=== PATIENT | female | born 1955 | race Caucasian/White ===

== ENCOUNTER 2021-08-30 03:17 | Outpatient (CLI) | payer OTHER, MEDICAID, SELFPAY ==
[2021-08-30 12:37] LABS: Source Nasal/Nares
[2021-08-30 20:16] LABS: COVID-19 PCR Negative (Negative)
== END 2021-08-30 03:18 | disposition home or self-care (01) ==
LOC: LBO 03:18
PROVIDERS: PCP Internal Medicine; Visit Provider Ophthalmology
DX: Z20.822 Contact with and (suspected) exposure to COVID-19 (principal); Z01.818 Encounter for other preprocedural examination
CPT/HCPCS: 87635

== ENCOUNTER 2021-09-02 07:57 | Day surgery (SDC) | payer OTHER, SELFPAY ==
--- NOTE | 2021-09-02 06:32 | ANES.PREOP_ITS ---
General Info Date of Service Date Performed: 09/02/21 Height: 5 ft 2 in Weight: 49.442 kg Body Mass Index (BMI): 19.9 Surgical Procedure: Operation Date: 09/02/21 10:40 Proposed Procedures Side Surgeon p Cataract Extraction with IOL Implant Left Shay Barreto MD Meds Allergies and Home Medications Allergies Allergy/AdvReac Type Severity Reaction Status Date / Time codeine Allergy Unknown Verified 09/02/21 08:35 adhesive tape Allergy Verified 09/02/21 08:35 tramadol AdvReac Severe Seizure Verified 09/02/21 08:35 Home Medication Medication Instructions Recorded acetaminophen 500 mg tablet 1,000 mg PO Q6H PRN tab 07/22/18 albuterol sulfate 2.5 mg/0.5 mL 2.5 mg IH Q4H PRN 07/22/18 solution for nebulization aluminum-mag hydroxide-simethicone 10 ml PO QID PRN 07/22/18 200 mg-200 mg-20 mg/5 mL oral susp ferrous sulfate 325 mg (65 mg 325 mg PO DAILY tab 07/22/18 iron) tablet fluticasone propionate 220 1 puff IH BID 07/22/18 mcg/actuation HFA aerosol inhaler hyoscyamine sulfate 0.125 mg 0.125 mg SL Q4H PRN tab 07/22/18 sublingual tablet lorazepam 1 mg tablet 1 mg PO TID tab 07/22/18 naloxone 4 mg/actuation nasal spray 1 spray PURVI ONCE PRN 07/22/18 nitroglycerin 0.4 mg sublingual 0.4 mg SL ONCE 07/22/18 tablet omeprazole 20 mg capsule,delayed 20 mg PO BID cap 07/22/18 release ondansetron HCl 8 mg tablet 8 mg PO Q8H PRN tab 07/22/18 cyanocobalamin (vitamin B-12) 1,000 mcg PO DAILY 07/27/18 1,000 mcg capsule potassium chloride 10 mEq 30 meq PO BID cap 07/27/18 capsule,extended release eplerenone 25 mg PO DAILY 08/29/21 linaclotide [Linzess] 145 mcg PO DAILY 08/29/21 pramipexole 0.25 mg PO TID 08/29/21 Current Visit Medications: Current Medications Generic Name Dose Route Start Last Admin Trade Name Freq PRN Reason Stop Dose Admin Acetaminophen 1,000 mg 09/02/21 06:00 Acetaminophen 500 Mg Tab PO Q4H PRN PRN Miscellaneous Medication 0 ml 09/02/21 06:00 Prednisolone 1%, Moxifloxacin 0.5%, Nepafenac 0.1% 5ml Btl OS DIRECTED [facility] Miscellaneous Medication 0 ml 09/02/21 06:00 Tropicam./Phenyleph. (1/2.5%) 5 Ml Btl OS DIRECTED [facility] Tetracaine HCl 0 ml 09/02/21 06:00 Tetracaine 0.5% 4 Ml Btl OS DIRECTED [facility] PFSH Active Problems Active Problems: Problem Status Onset Code Nuclear sclerotic cataract of left eye H25.12 Medical History Medical History (Updated 08/30/21 @ 20:50 by Shay Barreto MD) Anemia Asthma Ataxia Chronic epigastric pain Chronic pain Cyst of kidney, acquired Depressive disorder Digestive system disorder Functional dysphagia Generalized abdominal pain Glycosuria Hyperglycemia Hypo-osmolality and hyponatremia Hypocalcemia Hypoglycemia Hypokalemia Hypotension Hypothyroidism Insomnia Iron deficiency Local edema Low back pain Migraine Neuropathy Pain in right knee Rectal prolapse Restless legs Right shoulder pain Seizures last seizure 4-5 years ago Shoulder joint pain Syncope Vaginal prolapse Vitamin D deficiency Weight loss Surgical History Surgical History (Updated 09/02/21 @ 08:33 by Denise Schultz) Hx of abdominal surgery Hx of cholecystectomy Hx of hysterectomy partial Hx of right knee surgery Hx of shoulder surgery left Hx of tonsillectomy Tobacco Smoking/Tobacco Use Status: Never Alcohol Alcohol Intake: never Substance Use Substance use: Never Substance use type: does not use Vital Signs and Lab Results Lab Results Blood Type / Crossmatch: No Data to Display Complete Blood Count: No Data to Display Complete Metabolic Panel: No Data to Display Liver Function Panel: No Data to Display Coagulation Panel: No Data to Display Cardiac Panel: No Data to Display Arterial Blood Gas: No Data to Display Venous Blood Gas: No Data to Display Pancreas Panel: No Data to Display Thyroid Panel: No Data to Display Infectious Disease: Coronavirus (COVID-19)(PCR) Negative (Negative) 08/30/21 11:55 08/30/21 Coronavirus 2019 Source Nasal/Nares 08/30/21 11:55 08/30/21 Blood Cultures: No Data to Display Toxicology Panel: No Data to Display Anesthesia Assessment and Plan Anesthesia History Personal History: No History of Anesthesia Complications Family History: No Family History of Anesthesia Complications Exercise Tolerance Exercise Tolerance: Metabolic Equivalents>4 Cardiac & Pulmonary Exam Cardiac Exam: Normal S1/S2 Heart Sounds Pulmonary Exam: Clear Bilateral Breath Sounds Implantable Cardiac Device Does patient have a Pacemaker or an ICD?: No Airway Exam Known Difficult Airway: No Mallampati Class: 2 Mouth Opening: Normal (> 3cm) Thyromental Distance: Greater than 3 cm Neck Range of Motion: Full ROM Neck Circumference: Normal Teeth Condition: Normal Dentition ASA Classification ASA Score: ASA 2 Emergency Case?: No NPO Status NPO Status: NPO Clears >2 hours, Solids >8 hours Anesthesia Plan Resuscitation Status: Full Code Anesthesia Technique: MAC Anesthesia Airway Planned: Natural Airway Monitors Used: Standard Monitors Preoperative Comments:: 65 yo for cataract removal. sig PMHx: asthma, chronic pain, dysphagia, neuropathy, RLS, seizures, never smoker, occ EtOH. Plan: MKO/MAC
[2021-09-02 08:30] VITALS: BP 126/82; PULSE 57; RESP 16; TEMP 36.8; O2SAT 100
[2021-09-02] MEDS: Tropicam./Phenyleph. (1/2.5%) 5 ML BTL OS ×3 (08:43→08:58)
[2021-09-02 08:45] VITALS: BMI 19.9
[2021-09-02] MEDS: Tetracaine 0.5% 4 ML BTL OS (09:32)
[2021-09-02] MEDS: Lidocaine 2% Jelly 6 ML SYR (09:33)
[2021-09-02] MEDS: Duovisc Viscoelastic System EACH 1 EACH (09:39)
[2021-09-02] MEDS: Balanced Salt Soln.-PLUS 500 ML BAG (09:39)
[2021-09-02] MEDS: Lidocaine 1% Pres-Free 5 ML VIAL (09:40)
[2021-09-02] MEDS: Povidone-Iodine Ophth 30 ML BTL (09:42)
[2021-09-02 09:57] VITALS: BP 119/59; PULSE 54; RESP 16; TEMP 36.2; O2SAT 97
--- NOTE | 2021-09-02 09:59 | W.PM.DSUDISC ---
Discharge Plan Disposition Patient Disposition: HOME Condition: Good Discharge Details Attending Provider: Shay Barreto Primary Care Provider: Raffaele Luna Home Meds and New Rx's Prescriptions: No Action cyanocobalamin (vitamin B-12) 1,000 mcg capsule 1,000 mcg PO DAILY RF: 0 ondansetron HCl 8 mg tablet 8 mg PO Q8H PRNRF: 0 nitroglycerin [Nitrostat] 0.4 mg tablet, sublingual 0.4 mg SL ONCE RF: 0 omeprazole 20 mg capsule,delayed release(DR/EC) 20 mg PO BID RF: 0 fluticasone propionate [Flovent HFA] 220 mcg/actuation HFA aerosol inhaler 1 puff IH BID RF: 0 alum-mag hydroxide-simeth 200-200-20 mg/5 mL suspension 10 ml PO QID PRNRF: 0 lorazepam 1 mg tablet 1 mg PO TID RF: 0 albuterol sulfate 2.5 mg/0.5 mL solution for nebulization 2.5 mg IH Q4H PRNRF: 0 naloxone 4 mg/actuation spray,non-aerosol 1 spray PURVI ONCE PRNRF: 0 acetaminophen [Tylenol Extra Strength] 500 mg tablet 1,000 mg PO Q6H PRNRF: 0 potassium chloride 10 mEq capsule, extended release 30 meq PO BID RF: 0 pramipexole 0.25 mg tablet 0.25 mg PO TID RF: 0 eplerenone 25 mg tablet 25 mg PO DAILY RF: 0 Linzess 145 mcg capsule 145 mcg PO DAILY RF: 0 Discharge Instructions Stand Alone Forms: Post-op Topical Cataract, Naomi Bailey (DSU) Discharge Orders Discharge Orders: Discharge Order (Routine); Ordered 09/02/21 Ordered By: Shay Barreto DS: Diagnosis Discharge Diagnosis (1) Nuclear sclerotic cataract of left eye: Status: Resolved
--- NOTE | 2021-09-02 09:59 | W.PM.OP ---
Date of service: 09/02/21 Time of Service: 09:59 Operative Note Operative Note DATE OF PROCEDURE: 09/02/21 PRE-OP DIAGNOSIS: Nuclear cataract, left eye, symptomatic POST-OP DIAGNOSIS: same PROCEDURE: Cataract extraction using phacoemulsification with intraocular lens implant, left eye SURGEON: Shay Barreto ANESTHESIA TYPE: Local By Surgeon and MAC Refer to Anesthesia Record PATHOLOGY: none sent COMPLICATIONS: None Patient was transported to: same day Patient's condition: stable Implants: [employer] / [employer] Tecnis [id number] Indications: Progressive decreased vision due to cataract, left eye Procedure Description: CATARACT SURGERY OPERATIVE REPORT PREOPERATIVE DIAGNOSIS: 1. Nuclear cataract, left eye POSTOPERATIVE DIAGNOSIS: Same OPERATION: 1. Cataract extraction using phacoemulsification with posterior chamber intraocular lens implant, left eye. IOL: IOL Oncology Social Worker/Model: Yuan & Yuan / TIM Tecnis [id number] IOL Power: + 23.5 diopters IOL Serial Number: [id number] Optic Diameter: 6.0 mm Haptic/Overall Diameter: 13.0 mm PHACO INFO: WiliamInnoCyteon Vision System with OZil and Active Fluidics Cumulative Dispersed Energy (CDE): 4.12 seconds SURGEON: Shay Barreto MD, LISA ANESTHESIA: Monitored A [facility] (MAC), with local sub-tenon's anesthetic infiltration COMPLICATIONS: None SPECIMENS: None INDICATIONS FOR PROCEDURE: The patient is a 65-year-old lady with history of diminished visual acuity in both eyes secondary to the development of bilateral nuclear cataract. She is significantly symptomatic in her left eye that she desires cataract surgery and attempt to improve and maximize her vision. PROCEDURE: The correct surgical eye was identified and marked as the left eye and the pupil was dilated in the preoperative area using mydriatics and cycloplegics. The dilated pupil size was 7.0 mm. Oral sedation was administered in the form of an Imprimis MKO Melt (midazolam 3mg/ketamine 25mg/ondansetron 2mg). The patient was brought to the operating room where cardiopulmonary monitoring was instituted and surgical time-out was performed, confirming the correct operative eye and IOL power. Topical anesthesia was administered and ophthalmic povidone-iodine 5% was instilled into the conjunctival fornices. Lidocaine gel was applied to the cornea and the fredy-ocular area was prepped with Betadine 10% solution and draped in the usual sterile fashion for intraocular surgery, including an aperture drape. A Tegaderm transparent film dressing was cut in half and used to cover the lashes and lid margins. Care was taken to sequester the lashes and lid margins under the Tegaderm dressing. A lid speculum was placed between the lids of the operative eye and the Case-Derik operating microscope was maneuvered into position. Kane scissors were then used to make a conjunctival buttonhole approximately 6mm posterior to the limbus in the inferonasal quadrant. Blunt dissection was carried out to expose bare sclera, and a blunt-tipped sub-tenon?s anesthesia cannula was introduced and passed posteriorly along the globe where non-preserved plain lidocaine was injected into posterior sub-Tenon?s space. A sideport knife was used to make a paracentesis port superiorly/superiortemporally. Intraocular phenylephrine/lidocaine was injected int the anterior chamber.. The anterior chamber was filled with viscoelastic. A 2.4mm keratome knife was used to create a half-thickness groove at the limbus and then to construct a three-plane near-clear corneal tunnel extending 2.0mm into clear cornea at the 3:00 position. A flap was raised on the anterior capsule and capsulorhexis forceps were used to complete a continuous curvilinear capsulorhexis of 5.0 mm. Balanced salt solution was then used to perform cortical cleaving hydrodissection and nuclear hydrodelineation until the lens could be freely rotated within the capsular bag. The lens nucleus was then disassembled and removed within the capsular bag and iris plane using phacoemulsification. Residual cortical material was removed using the 45-degree angled silicone I/A tip with 0.3mm port. The posterior capsule was carefully polished to remove as much residual lens epithelial cells as safely possible. The capsular bag was then inflated and the anterior chamber deepened with viscoelastic. The lens implant described above was inserted into the capsular bag using the TIM [place] Injector. A Kuglen hook was used to dial the IOL into position. Residual viscoelastic was then removed first from posterior to the IOL, then from the anterior chamber using the I/A handpiece. The lens implant was noted to center nicely within the capsular bag. The incisions were stromally hydrated, and the anterior chamber was reformed using BSS. Then 0.5cc of moxifloxacin 1.0mg/ml were injected into the capsular bag and anterior chamber. The incisions were checked with a Weck spear and found to be secure. Several drops of ophthalmic povidone-iodine 5% were then applied to the eye followed by two drops of Imprimis combination prednisolone/moxifloxacin/nepafenac solution. The drapes were removed and a clear plastic protective eye shield was placed over the eye. The patient was then returned to Same Day Surgery in stable condition.
--- NOTE | 2021-09-02 10:05 | W.ANESPOSTOP ---
Postoperative Evaluation Date, Time and Location Date Performed: 09/02/21 Time Performed: 10:05 Patient Location: Day Surgery Unit Vital Signs Most Recent Imported Vital Signs: Most Recent Vital Signs Temp Pulse Resp BP Pulse Ox 36.2 C L 54 L 16 119/59 L 97 09/02/21 09:57 09/02/21 09:57 09/02/21 09:57 09/02/21 09:57 09/02/21 09:57 Pain Score Most Recent Pain Score: Most Recent Pain Score Pain Level 0 09/02/21 09:57 Assessment Mental Status: Awake (Alert & Oriented to Patient Baseline) Airway and Respiratory Function: Patent airway with normal (patient baseline) respiratory exam Cardiovascular Function: Hemodynamically Stable Hydration Status: Adequately Hydrated Nausea & Vomiting: No Nausea or Vomiting Pain: Pt. Denies Any Pain Peripheral Nerve Block: Patient did not receive a nerve block
[2021-09-02 10:30] VITALS: BP 117/60; PULSE 63; RESP 16; TEMP 36.5; O2SAT 97
== END 2021-09-02 10:37 | disposition home or self-care (01) ==
PROVIDERS: PCP Internal Medicine; Visit Provider Ophthalmology
PROC: (CPT 66984; principal; 2021-09-02 10:30)
DX: H25.12 Age-related nuclear cataract, left eye (principal); J45.909 Unspecified asthma, uncomplicated; E03.9 Hypothyroidism, unspecified
CPT/HCPCS: 66984; V2632

== ENCOUNTER 2021-09-13 02:33 | Outpatient (CLI) | payer OTHER, MEDICAID, SELFPAY ==
[2021-09-13 10:09] LABS: Source Nasal/Nares
[2021-09-13 12:54] LABS: COVID-19 PCR Negative (Negative)
== END 2021-09-13 02:34 | disposition home or self-care (01) ==
LOC: LBO 02:34
PROVIDERS: PCP Internal Medicine; Visit Provider Ophthalmology
DX: Z20.822 Contact with and (suspected) exposure to COVID-19 (principal); Z01.818 Encounter for other preprocedural examination
CPT/HCPCS: 87635

== ENCOUNTER 2021-09-16 06:45 | Day surgery (SDC) | payer OTHER, SELFPAY ==
[2021-09-16 07:07] VITALS: BP 126/67; PULSE 58; RESP 16; TEMP 36.3; O2SAT 97
--- NOTE | 2021-09-16 07:28 | ANES.PREOP_ITS ---
General Info Date of Service Date Performed: 09/16/21 Height: 5 ft 2 in Weight: 51.2 kg Body Mass Index (BMI): 20.6 Surgical Procedure: Operation Date: 09/16/21 08:40 Proposed Procedures Side Surgeon p Cataract Extraction with IOL Implant Right Shay Barreto MD Meds Allergies and Home Medications Allergies Allergy/AdvReac Type Severity Reaction Status Date / Time codeine Allergy Unknown Verified 09/16/21 07:15 adhesive tape Allergy Verified 09/16/21 07:15 tramadol AdvReac Severe Seizure Verified 09/16/21 07:15 Home Medication Medication Instructions Recorded acetaminophen 500 mg tablet 1,000 mg PO Q6H PRN tab 07/22/18 albuterol sulfate 2.5 mg/0.5 mL 2.5 mg IH Q4H PRN 07/22/18 solution for nebulization aluminum-mag hydroxide-simethicone 10 ml PO QID PRN 07/22/18 200 mg-200 mg-20 mg/5 mL oral susp fluticasone propionate 220 1 puff IH BID 07/22/18 mcg/actuation HFA aerosol inhaler lorazepam 1 mg tablet 1 mg PO TID tab 07/22/18 naloxone 4 mg/actuation nasal spray 1 spray PURVI ONCE PRN 07/22/18 nitroglycerin 0.4 mg sublingual 0.4 mg SL ONCE 07/22/18 tablet omeprazole 20 mg capsule,delayed 20 mg PO BID cap 07/22/18 release ondansetron HCl 8 mg tablet 8 mg PO Q8H PRN tab 07/22/18 cyanocobalamin (vitamin B-12) 1,000 mcg PO DAILY 07/27/18 1,000 mcg capsule potassium chloride 10 mEq 30 meq PO BID cap 07/27/18 capsule,extended release eplerenone 25 mg PO DAILY 08/29/21 linaclotide [Linzess] 145 mcg PO DAILY 08/29/21 pramipexole 0.25 mg PO TID 08/29/21 Current Visit Medications: Current Medications Generic Name Dose Route Start Last Admin Trade Name Freq PRN Reason Stop Dose Admin Acetaminophen 1,000 mg 09/16/21 06:00 Acetaminophen 500 Mg Tab PO Q4H PRN PRN Miscellaneous Medication 0 ml 09/16/21 06:00 Prednisolone 1%, Moxifloxacin 0.5%, Nepafenac 0.1% 5ml Btl OD DIRECTED [facility] Miscellaneous Medication 0 ml 09/16/21 06:00 Tropicam./Phenyleph. (1/2.5%) 5 Ml Btl OD DIRECTED [facility] Tetracaine HCl 0 ml 09/16/21 06:00 Tetracaine 0.5% 4 Ml Btl OD DIRECTED [facility] PFSH Active Problems Active Problems: Problem Status Onset Code Nuclear sclerotic cataract of right eye H25.11 Nuclear sclerotic cataract of left eye H25.12 Medical History Active Problem List Nuclear sclerotic cataract of right eye (Acute) Medical History Anemia Asthma Ataxia Chronic epigastric pain Chronic pain Cyst of kidney, acquired Depressive disorder Digestive system disorder Functional dysphagia Generalized abdominal pain Glycosuria Hx of Crowe's palsy Hx of Lyme disease Hyperglycemia Hypo-osmolality and hyponatremia Hypocalcemia Hypoglycemia Hypokalemia Hypotension Hypothyroidism Insomnia Iron deficiency Local edema Low back pain Migraine Neuropathy Pain in right knee Rectal prolapse Restless legs Right shoulder pain Seizures last seizure 4-5 years ago Shoulder joint pain Syncope Vaginal prolapse Vitamin D deficiency Weight loss Surgical History Surgical History Hx of abdominal surgery Hx of cholecystectomy Hx of hysterectomy partial Hx of right knee surgery Hx of shoulder surgery left Hx of tonsillectomy Tobacco Smoking/Tobacco Use Status: Never Alcohol Alcohol Intake: never Substance Use Substance use: Never Substance use type: does not use Vital Signs and Lab Results Vital Signs Most Recent Vital Signs in EMR: Most Recent Vital Signs Temp Pulse Resp BP Pulse Ox 36.3 C L 58 L 16 126/67 97 09/16/21 07:07 09/16/21 07:07 09/16/21 07:07 09/16/21 07:07 09/16/21 07:07 Lab Results Blood Type / Crossmatch: 2 No Data to Display Complete Blood Count: No Data to Display Complete Metabolic Panel: No Data to Display Liver Function Panel: No Data to Display Coagulation Panel: No Data to Display Cardiac Panel: No Data to Display Arterial Blood Gas: No Data to Display Venous Blood Gas: No Data to Display Pancreas Panel: No Data to Display Thyroid Panel: No Data to Display Infectious Disease: Coronavirus (COVID-19)(PCR) Negative (Negative) 09/13/21 08:50 09/13/21 Coronavirus 2019 Source Nasal/Nares 09/13/21 08:50 09/13/21 Blood Cultures: No Data to Display Toxicology Panel: No Data to Display Anesthesia Assessment and Plan Anesthesia History Personal History: No History of Anesthesia Complications Family History: No Family History of Anesthesia Complications Exercise Tolerance Exercise Tolerance: Metabolic Equivalents>4 Pertinent Negatives Pertinent Negatives: No Symptoms of GERD Cardiac & Pulmonary Exam Cardiac Exam: Normal S1/S2 Heart Sounds Pulmonary Exam: Clear Bilateral Breath Sounds Implantable Cardiac Device Does patient have a Pacemaker or an ICD?: No Airway Exam Known Difficult Airway: No Mallampati Class: 2 Mouth Opening: Normal (> 3cm) Thyromental Distance: Greater than 3 cm Neck Range of Motion: Full ROM Neck Circumference: Normal Teeth Condition: Normal Dentition ASA Classification ASA Score: ASA 3 Emergency Case?: No NPO Status NPO Status: NPO Clears >2 hours, Solids >8 hours Anesthesia Plan Resuscitation Status: Full Code Anesthesia Technique: MAC Anesthesia Airway Planned: Natural Airway Monitors Used: Standard Monitors
[2021-09-16] MEDS: Tropicam./Phenyleph. (1/2.5%) 5 ML BTL OD ×3 (07:30→07:40)
[2021-09-16 07:50] VITALS: BMI 20.6
[2021-09-16] MEDS: Tetracaine 0.5% 4 ML BTL OD (08:14)
[2021-09-16] MEDS: Balanced Salt Soln.-PLUS 500 ML BAG (08:15)
[2021-09-16] MEDS: Duovisc Viscoelastic System EACH 1 EACH (08:15)
[2021-09-16] MEDS: Lidocaine 2% Jelly 6 ML SYR (08:16)
[2021-09-16] MEDS: Povidone-Iodine Ophth 30 ML BTL (08:18)
--- NOTE | 2021-09-16 08:31 | W.PM.DSUDISC ---
Discharge Plan Disposition Patient Disposition: HOME Condition: Good Discharge Details Attending Provider: Shay Barreto Primary Care Provider: Raffaele Luna Home Meds and New Rx's Prescriptions: No Action cyanocobalamin (vitamin B-12) 1,000 mcg capsule 1,000 mcg PO DAILY RF: 0 ondansetron HCl 8 mg tablet 8 mg PO Q8H PRNRF: 0 nitroglycerin [Nitrostat] 0.4 mg tablet, sublingual 0.4 mg SL ONCE RF: 0 omeprazole 20 mg capsule,delayed release(DR/EC) 20 mg PO BID RF: 0 fluticasone propionate [Flovent HFA] 220 mcg/actuation HFA aerosol inhaler 1 puff IH BID RF: 0 alum-mag hydroxide-simeth 200-200-20 mg/5 mL suspension 10 ml PO QID PRNRF: 0 lorazepam 1 mg tablet 1 mg PO TID RF: 0 albuterol sulfate 2.5 mg/0.5 mL solution for nebulization 2.5 mg IH Q4H PRNRF: 0 naloxone 4 mg/actuation spray,non-aerosol 1 spray PURVI ONCE PRNRF: 0 acetaminophen [Tylenol Extra Strength] 500 mg tablet 1,000 mg PO Q6H PRNRF: 0 potassium chloride 10 mEq capsule, extended release 30 meq PO BID RF: 0 pramipexole 0.25 mg tablet 0.25 mg PO TID RF: 0 eplerenone 25 mg tablet 25 mg PO DAILY RF: 0 Linzess 145 mcg capsule 145 mcg PO DAILY RF: 0 Discharge Instructions Stand Alone Forms: Post-op Topical Cataract, Naomi Bailey ([facility]U) Discharge Orders Discharge Orders: Discharge Order (Routine); Ordered 09/16/21 Ordered By: Shay Barreto DS: Diagnosis Discharge Diagnosis (1) Nuclear sclerotic cataract of right eye: Status: Resolved
[2021-09-16 08:32] VITALS: BP 101/67; PULSE 62; RESP 16; TEMP 36.6; O2SAT 97
--- NOTE | 2021-09-16 08:32 | ROE_ITS ---
Date of service: 09/16/21 Operative Note Operative Note DATE OF PROCEDURE: 09/16/21 PRE-OP DIAGNOSIS: Nuclear cataract, right eye POST-OP DIAGNOSIS: same PROCEDURE: Cataract extraction using phacoemulsification with intraocular lens implant, right eye SURGEON: Shay Barreto ANESTHESIA TYPE: Local By Surgeon and MAC Refer to Anesthesia Record ESTIMATED BLOOD LOSS: 0 PATHOLOGY: none sent COMPLICATIONS: None Patient was transported to: same day Patient's condition: stable Implants: Yuan & Yuan/TIM Tecnis [id number] Indications: Progressive visual loss due to cataract, right eye Procedure Description: CATARACT SURGERY OPERATIVE REPORT PREOPERATIVE DIAGNOSIS: 1. Nuclear cataract, right eye POSTOPERATIVE DIAGNOSIS: Same OPERATION: 1. Cataract extraction using phacoemulsification with posterior chamber intraocular lens implant, right eye. IOL: IOL Dray Driver/Model: Yuan [employer] Yuan / TIM Tecnis [id number] IOL Power: + 23.0 diopters IOL Serial Number: [id number] Optic Diameter: 6.0mm Haptic/Overall Diameter: 13.0mm PHACO INFO: WiliamHand Talk Vision System with OZil and Active Fluidics Cumulative Dispersed Energy (CDE): 4.85 seconds SURGEON: Shay Barreto MD, LISA ANESTHESIA: Monitored Anesthesia Care (MAC), with local sub-tenon's anesthetic infiltration COMPLICATIONS: None SPECIMENS: None INDICATIONS FOR PROCEDURE: The patient is a 65-year-old lady with history of diminished visual acuity in both eyes secondary to the development of bilateral cataract. She has already undergone cataract surgery in the left eye and is doing well postoperatively. She now presents for cataract surgery in the right eye. PROCEDURE: The correct surgical eye was identified and marked as the right eye and the pupil was dilated in the preoperative area using mydriatics and cycloplegics. The dilated pupil size was 7.0 mm. Oral sedation was administered in the form of an Imprimis MKO Melt (midazolam 3mg/ketamine 25mg/ondansetron 2mg). The patient was brought to the operating room where cardiopulmonary monitoring was instituted and surgical time-out was performed, confirming the correct operative eye and IOL power. Topical anesthesia was administered and ophthalmic povidone-iodine 5% was instilled into the conjunctival fornices. Lidocaine gel was applied to the cornea and the fredy-ocular area was prepped with Betadine 10% solution and draped in the usual sterile fashion for intraocular surgery, including an aperture drape. A Tegaderm transparent film dressing was cut in half and used to cover the lashes and lid margins. Care was taken to sequester the lashes and lid margins under the Tegaderm dressing. A lid speculum was placed between the lids of the operative eye and the Case-Derik operating microscope was maneuvered into position. Kane scissors were then used to make a conjunctival buttonhole approximately 6mm posterior to the limbus in the inferonasal quadrant. Blunt dissection was carried out to expose bare sclera, and a blunt-tipped sub-tenon?s anesthesia cannula was introduced and passed posteriorly along the globe where non- preserved plain lidocaine was injected into posterior sub-Tenon?s space. A sideport knife was used to make a paracentesis port inferotemporally. Intraocular phenylephrine/lidocaine was injected into the anterior chamber. The anterior chamber was filled with viscoelastic. A 2.4mm keratome knife was used to create a half-thickness groove at the limbus and then to construct a three- plane near-clear corneal tunnel extending 2.0mm into clear cornea superiortemporally. A flap was raised on the anterior capsule and capsulorhexis forceps were used to complete a continuous curvilinear capsulorhexis of 5.5 mm. Balanced salt solution was then used to perform cortical cleaving hydrodissection and nuclear hydrodelineation until the lens could be freely rotated within the capsular bag. The lens nucleus was then disassembled and removed within the capsular bag and iris plane using phacoemulsification. Residual cortical material was removed using the I/A handpiece. The posterior capsule was carefully polished to remove as much residual lens epithelial cells as safely possible. The capsular bag was then inflated and the anterior chamber deepened with viscoelastic. The lens implant described above was inserted into the capsular bag using the TIM [place] Injector. A Kuglen hook was used to dial the IOL into position. Residual viscoelastic was then removed first from posterior to the IOL, then from the anterior chamber using the I/A handpiece. The lens implant was noted to center nicely within the capsular bag. The incisions were stromally hydrated, and the anterior chamber was reformed using BSS. Then 0.5cc of moxifloxacin 1.0mg/ml were injected into the capsular bag and anterior chamber. The incisions were checked with a Weck spear and found to be secure. Several drops of ophthalmic povidone-iodine 5% were then applied to the eye followed by two drops of Imprimis combination prednisolone/moxifloxacin/nepafenac solution. The drapes were removed and a clear plastic protective eye shield was placed over the eye. The patient was then returned to Same Day Surgery in stable condition.
[2021-09-16 09:00] VITALS: BP 109/63; PULSE 67; RESP 16; TEMP 36.5; O2SAT 96
--- NOTE | 2021-09-16 09:06 | W.ANESPOSTOP ---
Postoperative Evaluation Date, Time and Location Date Performed: 09/16/21 Time Performed: 09:00 Patient Location: Day Surgery Unit Vital Signs Most Recent Imported Vital Signs: Most Recent Vital Signs Temp Pulse Resp BP Pulse Ox 36.5 C 67 16 109/63 96 09/16/21 09:00 09/16/21 09:00 09/16/21 09:00 09/16/21 09:00 09/16/21 09:00 Pain Score Most Recent Pain Score: Most Recent Pain Score Pain Level 0 09/16/21 09:00 Assessment Mental Status: Awake (Alert & Oriented to Patient Baseline) Airway and Respiratory Function: Patent airway with normal (patient baseline) respiratory exam Cardiovascular Function: Hemodynamically Stable Hydration Status: Adequately Hydrated Nausea & Vomiting: No Nausea or Vomiting Pain: Pt. Denies Any Pain Peripheral Nerve Block: Patient did not receive a nerve block
== END 2021-09-16 09:12 | disposition home or self-care (01) ==
PROVIDERS: PCP Internal Medicine; Visit Provider Ophthalmology
PROC: (CPT 66984; principal; 2021-09-16 08:30)
DX: H25.11 Age-related nuclear cataract, right eye (principal)
CPT/HCPCS: 66984; V2632

== ENCOUNTER → 2025-02-14 13:29 | Outpatient (BNVA) | payer MEDICARE, SELFPAY | PROVIDERS: PCP Family Medicine; Referring Provider Family Medicine; Visit Provider Student in an Organized Health Care Education/Training Program | DX: M75.101 Unspecified rotator cuff tear or rupture of right shoulder, not specified as traumatic (principal); M75.21 Bicipital tendinitis, right shoulder | CPT/HCPCS: 99204 ==

== ENCOUNTER 2025-03-01 00:49 | Outpatient (CLI) | payer MEDICARE, SELFPAY ==
--- NOTE | 2025-03-01 06:30 | DI.CT_ITS ---
Exam(s) CT UPPER EXTREMITY RT WO EXAM: CT UPPER EXTREMITY RT WO CLINICAL HISTORY: SURGICAL PLANNING,rt rotator cuff tear, m75.101 TECHNIQUE: Imaging Protocol: Axial computed tomography images with coronal and sagittal reformatted images were created and reviewed. CONTRAST MATERIAL: Intravenous: Omnipaque 350 Contrast volume:structured data in ml Contrast route:I V - COMPARISON: DX XR SHOULDER RIGHT (GENERIC) from 01/05/2025 FINDINGS: Bones: There is no evidence of fracture or dislocation. Bony alignment is satisfactory. No cellulitic or osteomyelitic changes are identified. The AC joint shows mild degenerative changes and adjacent small bony fragment. Minimal degenerative changes of the glenohumeral joint. Small degenerative subchondral cysts in the humeral head. No lytic or sclerotic lesions are identified. Soft Tissues: No significant muscle atrophy. IMPRESSION: Mild degenerative changes of the AC joint and glenohumeral joint. RADIATION DOSE DELIVERED: 113.49mGy.cm Total DLP DATA REPOSITORY: All CT scans at this facility are submitted to the National Radiology Data Registry (NRDR) Dose Index Registry (DIR) with the [employer] (A[employer]). RADIATION OPTIMIZATION: All CT scans at this facility use at least one of these dose optimization te chniques: automated exposure control; mA and/or kV adjustment per patient size (includes targeted exa ms where dose is matched to clinical indication); or iterative reconstruction.
== END 2025-03-01 01:09 ==
PROVIDERS: PCP Family Medicine; Visit Provider Student in an Organized Health Care Education/Training Program
DX: M19.011 Primary osteoarthritis, right shoulder (principal)
CPT/HCPCS: 73200

== ENCOUNTER → 2025-03-07 09:27 | Outpatient (BNVA) | payer MEDICARE, SELFPAY | PROVIDERS: PCP Family Medicine; Referring Provider Family Medicine; Visit Provider Student in an Organized Health Care Education/Training Program | DX: M75.101 Unspecified rotator cuff tear or rupture of right shoulder, not specified as traumatic (principal); M75.21 Bicipital tendinitis, right shoulder | CPT/HCPCS: 99214 ==

== ENCOUNTER 2025-03-17 06:12 | Day surgery (SDC) | payer MEDICARE, SELFPAY ==
--- NOTE | 2025-03-16 19:35 | W.ANESPRE ---
General Info Date of Service Date Performed: 03/17/25 Height: 5 ft 2 in Weight: 49.895 kg Body Mass Index (BMI): 20.1 Surgical Procedure: Operation Date: 03/17/25 07:40 Proposed Procedure Side Surgeon p Shoulder Reverse Total Arthroplasty, Biceps Tenodesis Right Félix Kumari MD Meds Allergies and Home Medications Allergies Allergy/AdvReac Type Severity Reaction Status Date / Time codeine Allergy Unknown sick to Verified 03/17/25 06:26 her stomach adhesive tape Allergy rash Verified 03/17/25 06:26 tramadol AdvReac Severe Seizure Verified 03/17/25 06:26 Home Medication ?Medication ?Instructions ?Recorded acetaminophen 500 mg tablet 1,000 mg PO Q6H PRN 07/22/18 (Tylenol Extra Strength) albuterol sulfate 2.5 mg/0.5 mL 2.5 mg inhalation Q4H PRN 07/22/18 solution for nebulization aluminum-mag hydroxide-simethicone 10 ml PO QID PRN 07/22/18 200 mg-200 mg-20 mg/5 mL oral susp fluticasone propionate 220 1 puff inhalation BID 07/22/18 mcg/actuation HFA aerosol inhaler (Flovent HFA) lorazepam 1 mg tablet 1 mg PO TID 07/22/18 naloxone 4 mg/actuation nasal spray 1 spray intranasal ONCE PRN 07/22/18 nitroglycerin 0.4 mg sublingual 0.4 mg sublingual ONCE 07/22/18 tablet (Nitrostat) omeprazole 20 mg capsule,delayed 20 mg PO BID 07/22/18 release ondansetron HCl 8 mg tablet 8 mg PO Q8H PRN 07/22/18 cyanocobalamin (vitamin B-12) 1,000 mcg PO DAILY 07/27/18 1,000 mcg capsule potassium chloride 10 mEq 30 meq PO BID 07/27/18 capsule,extended release pramipexole 0.25 mg tablet 0.25 mg PO TID 08/29/21 ascorbic acid (vitamin C) 500 mg 500 mg PO DAILY 02/14/25 capsule bisacodyl 5 mg tablet 5 mg PO ONCE 02/14/25 cholecalciferol (vitamin D3) 50 100 mcg PO DAILY 02/14/25 mcg (2,000 unit) capsule duloxetine 20 mg capsule,delayed 20 mg PO DAILY 02/14/25 release furosemide 20 mg tablet 20 mg PO DAILY PRN 02/14/25 melatonin 3 mg capsule 6 mg PO HS PRN 02/14/25 albuterol sulfate 90 mcg/actuation inhalation 03/17/25 aerosol inhaler sucralfate 1 gram tablet 1 g PO HS 03/17/25 Current Visit Medications: Current Medications Generic Name Dose Route Start Last Admin Trade Name Freq PRN Reason Stop Dose Admin Ringer's Solution 1,000 mls @ 30 mls/hr 03/17/25 06:00 IV 03/17/25 23:59 INFUSION KENNETH Cefazolin Sodium/Dextrose 2 gm in 50 mls @ 100 mls/hr 03/17/25 06:00 Ancef Duplex IVPB 03/17/25 23:59 PREOP KENNETH Tranexamic Acid/Sodium Chloride 1,000 mg in 100 mls @ 600 mls/hr 03/17/25 06:00 IVPB 03/17/25 23:59 DIRECTED KENNETH IV Miscellaneous Supplies 1 each 03/17/25 06:00 Iv Access IV 03/17/25 23:59 DIRECTED KENNETH Sodium Chloride 0 ml 03/17/25 06:00 Normal Saline Flush 10 Ml Syr IV 03/17/25 23:59 PRN PRN Sodium Chloride 0 ml 03/17/25 06:00 Normal Saline 10 Ml Vial IJ 03/17/25 23:59 DIRECTED PRN Sterile Water 0 ml 03/17/25 06:00 Water,Injection,Sterile 10 Ml Vial IJ 03/17/25 23:59 DIRECTED PRN PFSH Active Problems Active Problems: Problem Status Onset Code Tendonitis of long head of biceps brachii of right shoulder Acute M75.21 Rotator cuff tear, right Acute M75.101 Nuclear sclerotic cataract of right eye Resolved H25.11 Nuclear sclerotic cataract of left eye Resolved H25.12 Medical History Medical History Hx of Crowe's palsy Hx of Lyme disease Cyst of kidney, acquired Functional dysphagia Vaginal prolapse Vitamin D deficiency Hypothyroidism Hypocalcemia Weight loss Hypotension Syncope Migraine Chronic epigastric pain Right shoulder pain Seizures last seizure 4-5 years ago Chronic pain Hyperglycemia Rectal prolapse Digestive system disorder Glycosuria Hypokalemia Neuropathy Depressive disorder Iron deficiency Restless legs Pain in right knee Hypoglycemia Low back pain Local edema Anemia Shoulder joint pain Hypo-osmolality and hyponatremia Ataxia Asthma Insomnia Generalized abdominal pain Surgical History Surgical History (Updated 03/15/25 @ 12:49 by Son Barrow) Hx of tonsillectomy Hx of cholecystectomy Hx of shoulder surgery left Hx of right knee surgery Hx of abdominal surgery Homero Fundoplication Hx of hysterectomy partial Tobacco Smoking/Tobacco Use Status: Never Passive smoking exposure: Yes Alcohol Alcohol Intake: never Substance Use Substance use: Never Substance use type: does not use Vital Signs and Lab Results Vital Signs Most Recent Vital Signs in EMR: Temp Pulse Resp BP Pulse Ox 36.6 C 58 L 16 136/84 98 03/17/25 06:20 03/17/25 06:20 03/17/25 06:20 03/17/25 06:20 03/17/25 06:20 Lab Results Blood Type / Crossmatch: No Data to Display Complete Blood Count: No Data to Display Complete Metabolic Panel: No Data to Display Liver Function Panel: No Data to Display Coagulation Panel: No Data to Display Cardiac Panel: No Data to Display Arterial Blood Gas: No Data to Display Venous Blood Gas: No Data to Display Pancreas Panel: No Data to Display Thyroid Panel: No Data to Display Infectious Disease: No Data to Display Blood Cultures: No Data to Display Toxicology Panel: No Data to Display Anesthesia Assessment and Plan Anesthesia History Personal History: PONV Family History: No Family History of Anesthesia Complications Exercise Tolerance Exercise Tolerance: Metabolic Equivalents>4 Cardiac & Pulmonary Exam Cardiac Exam: Normal S1/S2 Heart Sounds Pulmonary Exam: Clear Bilateral Breath Sounds Implantable Cardiac Device Does patient have a Pacemaker or an ICD?: No Airway Exam Known Difficult Airway: No Mallampati Class: 2 Mouth Opening: Normal (> 3cm) Thyromental Distance: Greater than 3 cm Neck Range of Motion: Full ROM Neck Circumference: Normal Teeth Condition: Normal Dentition ASA Classification ASA Score: ASA 2 Emergency Case?: No NPO Status NPO Status: NPO Clears >2 hours, Solids >8 hours Anesthesia Plan Resuscitation Status: Full Code Anesthesia Technique: General Anesthesia Airway Planned: Endotracheal Tube Pain Management: Surgeon and patient request nerve block Monitors Used: Standard Monitors Preoperative Comments:: 69 yo for reverse total shoulder. sig PMHx: asthma (occ albuterol use), GERD (frequent), homero/dysphagia/partial gastrectomy, neuropathy (feet and finger tips), CRPS/chronic pain, LBP, RLS, seizures, depression, never smoker, occ EtOH. ECG: sinus ehsan. Previous Anes: - cataract x 2, with MKO.
[2025-03-16 19:41] VITALS: BMI 20.1
[2025-03-17] VITALS (37 sets, daily range): BP systolic 95–154; BP diastolic 43–110; PULSE 43–75; RESP 10–18; TEMP 36.2–36.6; O2SAT 91–98
[2025-03-17] MEDS: Lactated Ringers 1,000 ML 30 ML IV (07:05)
--- NOTE | 2025-03-17 07:06 | PDOC.DSDIS_ITS ---
Date of service: 03/17/25 Discharge Plan Disposition Patient Disposition: Home Condition: Stable Discharge Details Attending Provider: Félix Kumari Primary Care Provider: Daniel Cruz Home Meds and New Rx's Prescriptions: New aspirin 81 mg tablet,delayed release (DR/EC) 81 mg PO DAILY 7 Days Qty: 7 0RF naproxen 250 mg tablet 250 mg PO BID PRN (Reason: Moderate pain) Qty: 28 0RF oxycodone 5 mg tablet 2.5 - 5 mg PO Q4H PRN (Reason: Moderate to severe pain) Qty: 18 0RF Continued cyanocobalamin (vitamin B-12) 1,000 mcg capsule 1,000 mcg PO DAILY ondansetron HCl 8 mg tablet 8 mg PO Q8H PRN nitroglycerin [Nitrostat] 0.4 mg tablet, sublingual 0.4 mg SL ONCE omeprazole 20 mg capsule,delayed release(DR/EC) 20 mg PO BID fluticasone propionate [Flovent HFA] 220 mcg/actuation HFA aerosol inhaler 1 puff IH BID alum-mag hydroxide-simeth 200-200-20 mg/5 mL suspension 10 ml PO QID PRN lorazepam 1 mg tablet 1 mg PO TID albuterol sulfate 2.5 mg/0.5 mL solution for nebulization 2.5 mg IH Q4H PRN naloxone 4 mg/actuation spray,non-aerosol 1 spray PURVI ONCE PRN acetaminophen [Tylenol Extra Strength] 500 mg tablet 1,000 mg PO Q6H PRN potassium chloride 10 mEq capsule, extended release 30 meq PO BID Patient Comments: As reported by Pt. TR ascorbic acid (vitamin C) 500 mg capsule 500 mg PO DAILY bisacodyl 5 mg tablet 5 mg PO ONCE cholecalciferol (vitamin D3) 50 mcg (2,000 unit) capsule 100 mcg PO DAILY duloxetine 20 mg capsule,delayed release(DR/EC) 20 mg PO DAILY furosemide 20 mg tablet 20 mg PO DAILY PRN melatonin 3 mg capsule 6 mg PO HS PRN sucralfate 1 gram tablet 1 g PO HS Patient Comments: TAKE 1 TABLET BY MOUTH 4 TIMES DAILY albuterol sulfate 90 mcg/actuation HFA aerosol inhaler INHALATION Patient Comments: INHALE 2 PUFFS BY MOUTH EVERY 6 HOURS pramipexole 0.25 mg tablet 0.25 mg PO TID Discharge Instructions Additional Instructions: Surgery: Right reverse total shoulder arthroplasty (constrained liner) with biceps tenodesis on 03/17/25 Activity: Do not lift anything heavier than a coffee. You should keep your arm at your side in a relatively neutral position at all times except for gentle ra nge of motion exercises, physical therapy, and essential activities. You should use the sling whenever you are out of the house. At home it is best to remove the sling and rest the arm on a pillow at your side or support the operative side with your other hand. A physical therapy prescription will be sent electronically to start in about 3 weeks. STANDARD Reverse TSA Protocol. Prescriptions: Aspirin 81 mg take 1 daily to prevent a blood clot for 7 days, starting tomorrow morning Naproxen 250 mg take 1 every 12 hours with a meal as needed for moderate pain Oxycodone 5 mg take 0.5-1 every 4-6 hours as needed for severe pain You may use [id number] Tylenol (acetaminophen) as needed for mild pain. These pain medications may be taken all at once or in different combinations as needed. Also, recommend Colace (docusate) as a stool softener as surgery and pain medicine cause constipation. You may try [id number] diphenhydramine (Benadryl) 25-50 mg nightly as a sleep aid Dressings: Leave dressing in place until follow-up. Keep clean and dry at all times. No showers please. Follow-up: 10-[address] Kumari You may take off the leg compression stockings this evening at home. You may also leave them on a few days longer if you have a history of leg swelling or edema. Please call the office during business hours with any questions or concerns. Let us know right away if you develop any redness, drainage, fevers, chest pain, or trouble breathing. Do not drink alcohol or drive for at least 24 hours after anesthesia. Stand Alone Forms: Anesthesia Discharge Inst., [place].Nerve Block Instructions, Naomi Bailey ([facility]) Referrals: Félix Kumari MD [ [facility] STAFF PHYSICIAN] - 03/28/25 11:00 am Discharge Orders Discharge Orders: Discharge Order (Routine); Ordered 03/17/25 Ordered By: Carlos Amato DS: Diagnosis Discharge Diagnosis (1) Rotator cuff tear, right: Status: Acute
--- NOTE | 2025-03-17 07:28 | ANES.NERVE_ITS ---
Nerve Block Single Injection Procedure Date and Time Date Performed: 03/17/25 Procedure Start: 07:18 Location Where Procedure Performed Procedure Location: Day Surgery Unit Reason Performed: Postoperative Analgesia Requesting Provider: Félix Kumari Timeout Performed Timeout Performed: Yes Monitoring Used ECG, Blood Pressure and SpO2 Sterility Sterility: Hand Hygiene, Surgical Cap, Surgical Mask, Sterile Gloves and Chlorhexidine Sedation Given During Procedure Sedation Given (Indicate Dose Given): Versed IV (1 mg + 1 mg) Dose:: 2 mg Patient Mental Status Patient Mental Status: Sedate with meaningful communication Nerve Block 1st Nerve Block: Laterality: Right Block Type: Interscalene Ultrasound Image Saved?: Yes Needle / Catheter Used: 80mm SonoPlex II Local Anesthetic Bolus (Indicate Dose Given): Lidocaine used for local infiltration of skin, Bupivacaine 0.25% Dose:: 10 mL and Exparel Dose:: 10 mL Additives (Indicate Dose Given): None Ultrasound: Sterile probe cover and gel used Nerve Stimulator: Supplement to Ultrasound use and No twitch or para sthesia noted < 0.5 mA (0.6) Paresthesia: None Procedure Tolerated: No Complications Procedure Outcome: Successful Performed By: Quinn Hernandez
--- NOTE | 2025-03-17 07:34 | W.PM.OP ---
Operative Note Operative Note PRE-OP DIAGNOSIS: Right: 1. Rotator cuff arthropathy 2. Long head of the biceps tendinopathy POST-OP DIAGNOSIS: same PROCEDURE: Right: 1. Reverse total shoulder arthroplasty, CPT # 12192 2. Open biceps tenodesis, CPT # 65879 The residential real estate assistant was medically required as this procedure involves retraction, protection of neurovascular structures, and manipulation of multiple instruments and implants at the same time, which cannot be done without a skilled residential real estate assistant. SURGEON: Félix Kumari GRAIN COMMODITY MANAGER: Carlos Amato ANESTHESIA TYPE: Local By Surgeon, General LMA/ETT and Primary Nerve Block Refer to Anesthesia Record ESTIMATED BLOOD LOSS: 300 COMPLICATIONS: None Patient was transported to: PACU Patient's condition: stable Implants: [employer] modular glenoid system baseplate 24 mm 10 degree standard full wedge augment [employer] modular glenoid system central post 20 mm [employer] modular glenoid system peripheral locking screws 28 mm inferior, 28 mm superior, 16 mm posterior, 16 mm anterior [employer] modular glenoid system glenosphere 36 +4 mm lateralized [employer] humeral stem 135 degrees size 7 [employer] suture cup size 36 posterior offset [employer] humeral insert size 36 +3 mm constrained Indications: Please see complete medical record for details. Findings: Significant long head biceps partial tearing and tenosynovitis, high-grade thinning partial tearing throughout the subscapularis, full-thickness supraspinatus medial transcend is tearing with some anterior supraspinatus intact thickened abnormal remnant. Relatively preserved glenohumeral cartilage. Intact posterior rotator cuff. Procedure Description: In the operating room, general anesthesia was induced. The patient was positioned beachchair on the operating room table. All bony prominences were well-padded. Preoperative antibiotics were administered. The shoulder was prepped and draped in the usual sterile fashion for shoulder arthroplasty. The correct patient, procedure, and side of the procedure were all verified prior to incision. The deltopectoral approach was preinjected with 0.25% bupivacaine containing epinephrine and taken to the anterior shoulder. Care was taken to bluntly dissect the interval between the deltoid and pectoralis major muscles and to identify the cephalic vein within its fat stripe. The the vein was mobilized medially although it had numerous branches which had to be coagulated near the vein itself eventually resulting in the vein being tied off with 0 Vicryl. Subdeltoid space and conjoined tendon were freed of adhesions. The long head of the biceps tendon was identified just lateral to the lesser tuberosity. The uppermost margin of the pectoralis major tendon was released from the proximal humerus. The long head of the biceps tendon was tenodesed in situ using SutureTape in a [id number] fashion securing it superior margin the pectoralis major tendon. The biceps tendon was amputated and followed proximally to identify the rotator interval. A subscapularis tenotomy was done after evaluating the upper lateral portion which was quite thin and partially torn gradually working on bone carefully into external rotation to expose the proximal humerus. The supraspinatus infraspinatus were identified and the supraspinatus largely debrided due to significant high-grade tearing with the more posterior infraspinatus and remainder of the cuff preserved. Appropriate coagulation was achieved especially interiorly. The anatomic neck was cut using an oscillating saw with the humeral head bone brought back table in case there was a need for future bone grafting. The proximal humerus was delivered from the wound with adduction and external rotation. The proximal humeral protection plate was used to provisionally confirm suture cup and glenosphere size. Reamers were started appropriately posterior to the bicipital groove taking care to maintain in line approach with the humeral canal. Sequential reaming was done from size 5 up to size 7. Next, the broaches were sequentially used to open the proximal humerus starting with a size 5 and going up to size 7 and sunk to the appropriate depth while maintaining approximately 25 degrees retroversion. There was good metaphyseal fit and rotational control of the proximal humerus with this size. The posterior offset guide was used to ream for the suture cup. Attention was then turned to the glenoid and retractors were placed and a circumferential release performed using the long head of the biceps remnant to remove soft tissue about the glenoid rim. Care was taken inferiorly to work on bone only between 5 and 7:00 o'clock and bluntly elevate tissues inferiorly. The VIP guide was placed on the glenoid and used to confirm placement and trajectory of the central guidepin. The guidepin was inserted and advanced just through the far cortex ensuring adequate central fixation length. The glenoid was prepared according to steward/stewardess bath specifications for a augmented baseplate and central post. The baseplate was impacted onto the glenoid surface. The locking guide was then used to drill and place appropriately lengthed inferior, superior, anterior, and posterior screws. The [id number] reamer was used to confirm adequate peripheral reaming. The glenosphere was applied with the install and repair technician and then impacted to engage the Gibson taper. It was then locked with appropriate countersinking of the setscrew. The glenosphere was inspected and found to have good fit, appropriate positioning, and no soft tissue or bony impingement. Attention was then turned back to the proximal humerus. The humeral trial cup was connected. Trialing was commenced with +3 mm liner. The shoulder was reduced and taken through range of motion. Trial components were built up to +3 mm liner to achieve excellent stability and appropriate tension on the deltoid and conjoined tension. The trial components were removed from the proximal humerus. The wound was copiously irrigated with normal saline. The the proximal humeral stem and suture cup were assembled and brought over the proximal humerus. A small amount of vancomycin powder was distributed in the proximal humerus. The humeral component and suture cup were impacted into place. The trial liner was added, and the shoulder was attempted to be reduced and tension confirmed. The final liner was then connected, constrained chosen due to lack of subscapularis repair and lack of supraspinatus with rotator cuff tear probably carrying higher rate of instability and this constrained liner construct demonstrated remarkably good stability and excellent range of motion and appropriate tension on the deltoid and conjoined tendons. The shoulder was copiously irrigated with Betadine and normal saline. The shoulder had a steady greater than average bloody ooze throughout the surgery, but all surfaces were evaluated at the end and ensured to be as dry as reasonably possible. Vancomycin powder was distributed deeply about the shoulder and through subcutaneous tissues. The deltopectoral interval was approximated with 2-0 Monocryl burying the cephalic vein, which had been tied off in a few places in the mid to distal substance but still gave the appearance of intact filling throughout its course. Subcutaneous tissue was irrigated then closed using 2-0 Monocryl in a buried interrupted fashion. Skin was closed using 3-0 Monocryl in a buried subcuticular fashion. Skin glue was applied to the incision. A silver impregnated bandage was placed over the incision. The extremity was placed into a shoulder immobilizer. The patient awoke from anesthesia without complication and was taken to the recovery room in stable condition. Date of Procedure: 03/17/25
[2025-03-17] MEDS: ceFAZolin 2 GM/50 ML BAG IVPB (07:52)
[2025-03-17] MEDS: TRANEXAMIC ACID/SOD. CHL. 1,000 MG/100 ML BAG 600 MG IVPB (07:58)
[2025-03-17] MEDS: Bupivacaine 0.25% Pres-Free W/EPI 30 ML VIAL (08:18)
[2025-03-17] MEDS: Vancomycin 1,000 MG VIAL 1000 MG (08:22)
--- NOTE | 2025-03-17 11:27 | W.ANESPOSTOP ---
Postoperative Evaluation Date, Time and Location Date Performed: 03/17/25 Time Performed: 11:27 Patient Location: PACU Vital Signs Most Recent Imported Vital Signs: Most Recent Vital Signs Temp Pulse Resp BP Pulse Ox 36.3 C L 59 L 18 95/47 L 93 03/17/25 10:59 03/17/25 11:10 03/17/25 11:10 03/17/25 11:06 03/17/25 11:06 Pain Score Most Recent Pain Score: Most Recent Pain Score Pain Level 6 03/17/25 11:20 Assessment Mental Status: Awake (Alert & Oriented to Patient Baseline) Airway and Respiratory Function: Patent airway with normal (patient baseline) respiratory exam Cardiovascular Function: Hemodynamically Stable Hydration Status: Adequately Hydrated Nausea & Vomiting: No Nausea or Vomiting Pain: Pain is Moderate or Severe (6/10, getting fent. unable to accurately describe the location at this time. ) Postoperative Pain Management: Pain being addressed with medication Peripheral Nerve Block: Regional nerve block not resolved at time of post operative discharge
[2025-03-17] MEDS: fentaNYL 100 MCG/2 ML VIAL IVP (11:29)
[2025-03-17] MEDS: ceFAZolin 1 GM/50 ML BAG IVPB (11:37)
--- NOTE | 2025-03-17 11:38 | DI.RAD_ITS ---
Exam(s) XR SHOULDER RT COMPLETE 2+V EXAM: XR SHOULDER RT COMPLETE 2+V INDICATION: Shoulder Arthritis. COMPARISON: No exams were available for comparison TECHNIQUE: 2D digital imaging was performed. Two views. Portable FINDINGS: A reverse shoulder prosthesis is place. The alignment appears satisfactory. There is residual post surgical air in the soft tissues. DATA REPOSITORY: RADIATION DOSE DELIVERED:
[2025-03-17] MEDS: Lactobacillus Acidophilus CAP 1 CAP PO (12:38)
== END 2025-03-17 13:10 | disposition home or self-care (01) ==
PROVIDERS: PCP Family Medicine; Visit Provider Student in an Organized Health Care Education/Training Program
PROC: (CPT 23472; principal; 2025-03-17 07:30)
DX: M75.101 Unspecified rotator cuff tear or rupture of right shoulder, not specified as traumatic (principal); M75.21 Bicipital tendinitis, right shoulder; G89.18 Other acute postprocedural pain
CPT/HCPCS: 23472; C1713; 64415; 73030; J0131; J0665; J0666; J0690; J1100; J1885; J2250; J2405; J2704; J3010; J3370

== ENCOUNTER 2025-03-28 11:44 | Outpatient (CLI) | payer MEDICARE, SELFPAY ==
--- NOTE | 2025-03-28 10:58 | DI.RAD_ITS ---
Exam(s) XR SHOULDER RT COMPLETE 2+V EXAM: XR SHOULDER RT COMPLETE 2+V CLINICAL HISTORY: F/U RIGHT RTSA. TECHNIQUE: 2D digital imaging was performed. COMPARISON: CR XR SHOULDER RT COMPLETE 2+V from 03/17/2025 FINDINGS: Two views Stable position alignment of the components of the reverse prosthesis. No fracture or loosening evid ent. IMPRESSION: Stable satisfactory appearance. DATA REPOSITORY: RADIATION DOSE DELIVERED:
== END 2025-03-28 11:45 | disposition home or self-care (01) ==
LOC: DIORS 11:45
PROVIDERS: PCP Family Medicine; Referring Provider Family Medicine; Visit Provider Student in an Organized Health Care Education/Training Program
DX: M75.101 Unspecified rotator cuff tear or rupture of right shoulder, not specified as traumatic (principal); Z47.89 Encounter for other orthopedic aftercare
CPT/HCPCS: 99024; 73030

== ENCOUNTER 2025-04-07 09:46 | Outpatient (CLI) | payer MEDICARE, SELFPAY ==
--- NOTE | 2025-04-07 09:00 | DI.RAD_ITS ---
Exam(s) XR SHOULDER RT COMPLETE 2+V EXAM: XR SHOULDER RT COMPLETE 2+V CLINICAL HISTORY: increased pain s/p RTSA. TECHNIQUE: 2D digital imaging was performed. Two images were obtained. Grashey and Y views were obtained. COMPARISON: CR XR SHOULDER RT COMPLETE 2+V from 03/28/2025 FINDINGS: BONES: There are stable post operative changes of a right reverse total shoulder arthroplasty present. No fracture or dislocation. JOINTS: The orthopedic hardware is in good position. No evidence of hardware loosening. SOFT TISSUE: Normal. IMPRESSION: Stable right reverse total shoulder arthroplasty. DATA REPOSITORY: RADIATION DOSE DELIVERED:
== END 2025-04-07 09:47 | disposition home or self-care (01) ==
LOC: DIORS 09:46
PROVIDERS: PCP Family Medicine; Referring Provider Family Medicine; Visit Provider Physician Assistant
DX: M75.101 Unspecified rotator cuff tear or rupture of right shoulder, not specified as traumatic (principal); S44.91XD Injury of unspecified nerve at shoulder and upper arm level, right arm, subsequent encounter
CPT/HCPCS: 99213; 73030

== ENCOUNTER 2025-04-25 11:08 | Outpatient (CLI) | payer MEDICARE, SELFPAY ==
--- NOTE | 2025-04-25 10:30 | DI.RAD_ITS ---
Exam(s) XR SHOULDER RT COMPLETE 2+V EXAM: XR SHOULDER RT COMPLETE 2+V INDICATION: F/U RIGHT RTSA. COMPARISON: CR XR SHOULDER RT COMPLETE 2+V from 04/07/2025 TECHNIQUE: 2D digital imaging was performed. Two views. FINDINGS: Stable alignment of the reverse shoulder prosthesis. No abnormal bony lucencies. DATA REPOSITORY: RADIATION DOSE DELIVERED:
== END 2025-04-25 11:09 | disposition home or self-care (01) ==
LOC: DIORS 11:08
PROVIDERS: PCP Family Medicine; Referring Provider Family Medicine; Visit Provider Student in an Organized Health Care Education/Training Program
DX: S44.91XA Injury of unspecified nerve at shoulder and upper arm level, right arm, initial encounter (principal); X58.XXXA Exposure to other specified factors, initial encounter; M75.101 Unspecified rotator cuff tear or rupture of right shoulder, not specified as traumatic; M75.21 Bicipital tendinitis, right shoulder
CPT/HCPCS: 99213; 73030

== ENCOUNTER 2025-05-30 10:09 | Outpatient (CLI) | payer MEDICARE, SELFPAY ==
--- NOTE | 2025-05-30 08:45 | DI.RAD_ITS ---
Exam(s) XR SHOULDER RT COMPLETE 2+V EXAM: XR SHOULDER RT COMPLETE 2+V CLINICAL HISTORY: F/U RIGHT RTSA. TECHNIQUE: 2D digital imaging was performed. Two images were obtained. Grashey and Y views were obtained. COMPARISON: CR XR SHOULDER RT COMPLETE 2+V from 04/25/2025 FINDINGS: BONES: There are stable post operative changes of a right reverse total shoulder arthroplasty present. No fracture or dislocation. JOINTS: The orthopedic hardware is in good position. No evidence of hardware loosening. There are degenerative changes seen at the acromioclavicular joint. SOFT TISSUE: Normal. IMPRESSION: Stable right reverse total shoulder arthroplasty. DATA REPOSITORY: RADIATION DOSE DELIVERED:
== END 2025-05-30 10:10 | disposition home or self-care (01) ==
LOC: DIORS 10:09
PROVIDERS: PCP Family Medicine; Referring Provider Family Medicine; Visit Provider Student in an Organized Health Care Education/Training Program
DX: Z47.89 Encounter for other orthopedic aftercare (principal); M75.101 Unspecified rotator cuff tear or rupture of right shoulder, not specified as traumatic; M75.21 Bicipital tendinitis, right shoulder
CPT/HCPCS: 99024; 73030

== ENCOUNTER 2025-06-23 10:30 | Emergency (ER) | payer MEDICARE, SELFPAY ==
[2025-06-23 10:34] VITALS: BP 123/74; PULSE 63; RESP 12; TEMP 36.7; O2SAT 95
--- NOTE | 2025-06-23 11:00 | DI.US_ITS ---
Exam(s) US LOWER EXTREMITY VENOUS RT EXAM: US LOWER EXTREMITY VENOUS RT CLINICAL HISTORY: swelling pain, recent surgery TECHNIQUE: Grayscale, color, and doppler imaging of the deep venous system of the right lower extremity was performed. COMPARISON: US POCUS EXAM from 03/17/2025 FINDINGS: There is no evidence of intraluminal thrombus and there is normal compression and augmentation demonstrated within the common femoral vein, femoral vein, and popliteal vein. In the ipsilateral calf the interrogated veins also exhibit normal compression/ augmentation properties. The ipsilateral saphenofemoral junction is patent. IMPRESSION: 1. No evidence of DVT in the right lower extremity. DATA REPOSITORY:
--- NOTE | 2025-06-23 11:18 | W.ED.GENAD ---
Discharge Plan Disposition Patient Disposition: Home Condition: Stable Discharge Details Clinical Impression: Edema of right lower extremity Primary Care Provider: Daniel Cruz ED Provider: Anselmo Ludwig Home Meds and New Rx's Prescriptions: Continued cyanocobalamin (vitamin B-12) 1,000 mcg capsule 1,000 mcg PO DAILY ondansetron HCl 8 mg tablet 8 mg PO Q8H PRN nitroglycerin [Nitrostat] 0.4 mg tablet, sublingual 0.4 mg SL ONCE omeprazole 20 mg capsule,delayed release(DR/EC) 20 mg PO BID fluticasone propionate [Flovent HFA] 220 mcg/actuation HFA aerosol inhaler 1 puff IH BID lorazepam 1 mg tablet 1 mg PO TID albuterol sulfate 2.5 mg/0.5 mL solution for nebulization 2.5 mg IH Q4H PRN naloxone 4 mg/actuation spray,non-aerosol 1 spray PURVI ONCE PRN acetaminophen [Tylenol Extra Strength] 500 mg tablet 1,000 mg PO Q6H PRN potassium chloride 10 mEq capsule, extended release 20 meq PO TID Patient Comments: As reported by Pt. TR ascorbic acid (vitamin C) 500 mg capsule 500 mg PO DAILY bisacodyl 5 mg tablet 5 mg PO ONCE cholecalciferol (vitamin D3) 50 mcg (2,000 unit) capsule 100 mcg PO DAILY duloxetine 20 mg capsule,delayed release(DR/EC) 20 mg PO DAILY melatonin 3 mg capsule 6 mg PO HS PRN doxycycline hyclate 100 mg capsule 100 mg PO BID Qty: 14 0RF sucralfate 1 gram tablet 1 g PO Q6H Patient Comments: TAKE 1 TABLET BY MOUTH 4 TIMES DAILY albuterol sulfate 90 mcg/actuation HFA aerosol inhaler 2 puff INHALATION Q6H PRN Patient Comments: INHALE 2 PUFFS BY MOUTH EVERY 6 HOURS naproxen 250 mg tablet 250 mg PO BID PRN (Reason: Moderate pain) Qty: 28 0RF gabapentin 100 mg capsule 300 mg PO TID oxycodone 5 mg tablet 10 mg PO Q6H MDD 5 mg PRN (Reason: Moderate to severe pain) pramipexole 0.25 mg tablet 0.5 mg PO TID Discharge Instructions Instructions: Lymphedema Additional Instructions: Please follow-up with your primary care physician next week for reassessment. Should swelling persist, additional outpatient diagnostics may be necessary. Please follow-up with your primary care physician. Call today to arrange follow-up. Return to the emergency department immediately for any worsening or new concerning symptoms. Referrals: Daniel Cruz MD [Primary Care Provider, Medicine] Discharge Data Discharge Date/Time-TO BE ENTERED AT DEPARTURE: 06/23/25 15:07 HPI General Mode of arrival: ambulatory. Date/Time Provider Initiated Documentation: 06/23/25 10:58. Limitations to Documentation: no limitations. Information obtained by: patient. HPI Narrative: HISTORY OF PRESENT ILLNESS 69-year-old female with recent back surgery presenting with right ankle and foot swelling for 3 days. Post-back surgery on 06/09/2025, treated IV site infection with antibiotics. Completed antibiotic course yesterday. Reports right foot and ankle swelling for 3 days, causing discomfort and pain, including knee discomfort when walking. First occurrence of these symptoms. Physical therapist concerned about potential blood clot, prompting ER visit. No history of blood clots or recent injuries. Reports black stools due to iron supplement taken every other day. Past surgical history includes 3 hip surgeries, shoulder replacement in 02/2025, and back surgery on 06/09/2025. Back pain improving. Home health visits due to difficulty getting in the truck. Related Data Home Medications ?Medication ?Instructions ?Recorded ?Confirmed acetaminophen 500 mg tablet 1,000 mg PO Q6H PRN 07/22/18 06/23/25 (Tylenol Extra Strength) albuterol sulfate 2.5 mg/0.5 mL 2.5 mg inhalation Q4H PRN 07/22/18 06/23/25 solution for nebulization fluticasone propionate 220 1 puff inhalation BID 07/22/18 06/23/25 mcg/actuation HFA aerosol inhaler (Flovent HFA) lorazepam 1 mg tablet 1 mg PO TID 07/22/18 06/23/25 naloxone 4 mg/actuation nasal spray 1 spray intranasal ONCE PRN 07/22/18 06/23/25 nitroglycerin 0.4 mg sublingual 0.4 mg sublingual ONCE 07/22/18 06/23/25 tablet (Nitrostat) omeprazole 20 mg capsule,delayed 20 mg PO BID 07/22/18 06/23/25 release ondansetron HCl 8 mg tablet 8 mg PO Q8H PRN 07/22/18 06/23/25 cyanocobalamin (vitamin B-12) 1,000 mcg PO DAILY 07/27/18 06/23/25 1,000 mcg capsule potassium chloride 10 mEq 20 meq PO TID 07/27/18 06/23/25 capsule,extended release pramipexole 0.25 mg tablet 0.5 mg PO TID 08/29/21 06/23/25 ascorbic acid (vitamin C) 500 mg 500 mg PO DAILY 02/14/25 06/23/25 capsule bisacodyl 5 mg tablet 5 mg PO ONCE 02/14/25 06/23/25 cholecalciferol (vitamin D3) 50 100 mcg PO DAILY 02/14/25 06/23/25 mcg (2,000 unit) capsule duloxetine 20 mg capsule,delayed 20 mg PO DAILY 02/14/25 06/23/25 release melatonin 3 mg capsule 6 mg PO HS PRN 02/14/25 06/23/25 albuterol sulfate 90 mcg/actuation 2 puff inhalation Q6H PRN 03/17/25 06/23/25 aerosol inhaler naproxen 250 mg tablet 250 mg PO BID PRN Moderate pain 03/17/25 06/23/25 #28 tabs sucralfate 1 gram tablet 1 g PO Q6H 03/17/25 06/23/25 doxycycline hyclate 100 mg capsule 100 mg PO BID #14 caps 04/07/25 06/23/25 gabapentin 100 mg capsule 300 mg PO TID nerve pain 06/23/25 06/23/25 oxycodone 5 mg tablet 10 mg PO Q6H PRN Moderate to 06/23/25 06/23/25 severe pain Previous Rx's ?Medication ?Instructions ?Recorded naproxen 250 mg tablet 250 mg PO BID PRN Moderate pain 03/17/25 #28 tabs doxycycline hyclate 100 mg capsule 100 mg PO BID #14 caps 04/07/25 Allergies Allergy/AdvReac Type Severity Reaction Status Date / Time codeine Allergy Unknown sick to Verified 06/23/25 10:37 her stomach adhesive tape Allergy rash Verified 06/23/25 10:37 tramadol AdvReac Severe Seizure Verified 06/23/25 10:37 General Stated Complaint: Orthopedic EDSON: 4 Review of Systems All systems reviewed & are unremarkable except as noted in HPI and below Exam Const General: cooperative and no acute distress Resp Auscultation: clear to auscultation bilaterally, no rales, no rhonchi and no wheezes Cardio Rate: regular rate and not tachycardic Rhythm: regular rhythm Skin General skin exam: no rashes or lesions noted Neuro General: patient alert, patient awake, patient oriented x3 and tone normal Extrem General: edema Laterality: right (Lower leg up to distal to the knee) Course Vital Signs Vital signs: Vital Signs Temperature 36.7 C 06/23/25 10:34 Pulse 63 06/23/25 10:34 Respiratory Rate 12 06/23/25 10:34 Blood Pressure 123/74 06/23/25 10:34 Pulse Oximetry 95 06/23/25 10:34 Temperature 36.7 C 06/23/25 10:34 Temperature Source Oral 06/23/25 10:34 Pulse 63 06/23/25 10:34 Respiratory Rate 12 06/23/25 10:34 Blood Pressure 123/74 06/23/25 10:34 Blood Pressure Position Sitting 06/23/25 10:34 Pulse Oximetry 95 06/23/25 10:34 Oxygen Delivery Method Room Air 06/23/25 10:34 Oxygen Flow Rate 0 06/23/25 10:34 Medical Decision Making ASSESSMENT AND PLAN Initial Assessment: Right ankle and foot swelling for 3 days with pain. Recent back surgery raises concern for blood clot. Differential Diagnosis: - Blood clot: Recent surgery increases risk. Ultrasound: No DVT. - Fracture: Pain and swelling. X-ray: No acute fracture or dislocation. ED Course: Ultrasound: No DVT, soft tissue swelling. X-ray: No acute fracture, dislocation, or destructive lesion. Diffuse soft tissue swelling around ankle. No soft tissue gas. Oxycodone prescribed for pain. Final Assessment: Ultrasound and x-ray results discussed. No DVT or fracture. Pain management with oxycodone. Clinical Impression: - Soft tissue swelling Disposition: Discharge: Home. Outpatient follow-up with PCP. Patient Education: Discharge instructions reviewed. This document was written with the assistance of CONNIE Whitaker. The patient consented to its use. PFSH All Active Problems (Updated 04/07/25 @ 08:57 by LUIS E Rodriguez) Edema of right lower extremity (Acute) Neuropraxia of right upper extremity (Acute) Rotator cuff tear, right (Acute) s/p Right reverse total shoulder arthroplasty (constrained liner) with biceps tenodesis 03/17/25 Medical History (Updated 06/23/25 @ 14:57 by Anselmo Ludwig MD) Tendonitis of long head of biceps brachii of right shoulder Hx of Crowe's palsy Hx of Lyme disease Cyst of kidney, acquired Functional dysphagia Vaginal prolapse Vitamin D deficiency Hypothyroidism Hypocalcemia Weight loss Hypotension Syncope Migraine Chronic epigastric pain Right shoulder pain Seizures last seizure 4-5 years ago Chronic pain Hyperglycemia Rectal prolapse Digestive system disorder Glycosuria Hypokalemia Neuropathy Depressive disorder Iron deficiency Restless legs Pain in right knee Hypoglycemia Low back pain Local edema Anemia Shoulder joint pain Hypo-osmolality and hyponatremia Ataxia Asthma Insomnia Generalized abdominal pain Surgical History (Updated 04/07/25 @ 08:57 by LUIS E Rodriguez) Hx of tonsillectomy Hx of cholecystectomy Hx of shoulder surgery left Hx of right knee surgery Hx of abdominal surgery Homero Fundoplication Hx of hysterectomy partial Family History (Updated 07/22/18 @ 11:57 by Sofy Jensen RN) Mother Coronary disease Father Liver disease Niece Tonic clonic seizures 2 uncles have also had seizures. Social History (Updated 07/22/18 @ 11:59 by Sofy Jensen RN) Smoking/Tobacco Use Status: Never Smoking risk assessment performed?: Yes Alcohol Intake: never Drug use: Never Substance use type: does not use Housing: house What is your relationship status?: Panel score (0-1 are the most socially isolated patients): 1 Do you feel safe at home: Yes Do you feel safe in your relationship?: Yes
[2025-06-23] MEDS: oxyCODONE 10 MG TAB PO (13:30)
--- NOTE | 2025-06-23 14:08 | DI.RAD_ITS ---
Exam(s) XR ANKLE RT COMPLETE XR TIB/FIB RT EXAM: XR ANKLE RT COMPLETE and XR tib/fib RT CLINICAL HISTORY: pain, swelling. TECHNIQUE: 2D digital imaging was performed of the right tibia/fibula and ankle. Five images were obtained. AP, lateral and oblique views were obtained. COMPARISON: There are no priors for comparison. FINDINGS: BONES: No acute fracture is present. No bony destructive lesion is seen. There is a small plantar calcaneal spur. JOINTS: The ankle mortise is normally aligned. Degenerative changes are seen around the knee. SOFT TISSUE: No radiopaque foreign bodies are seen in the soft tissues. No soft tissue gas is appreciated. There is soft tissue swelling around the ankle. IMPRESSION: 1. There is no acute fracture, dislocation or destructive lesion in the bones. 2. Diffuse soft tissue swelling around the ankle. No soft tissue gas is seen. DATA REPOSITORY: RADIATION DOSE DELIVERED:
== END 2025-06-23 15:07 | disposition home or self-care (01) ==
PROVIDERS: Emergency Provider Student in an Organized Health Care Education/Training Program; PCP Family Medicine
DX: R60.0 Localized edema (principal)
CPT/HCPCS: 99284; 99283; 73590; 73610; 93971

== ENCOUNTER 2025-08-01 10:43 | Outpatient (CLI) | payer MEDICARE, SELFPAY ==
--- NOTE | 2025-08-01 08:15 | DI.RAD_ITS ---
Exam(s) XR SHOULDER RT COMPLETE 2+V EXAM: XR SHOULDER RT COMPLETE 2+V CLINICAL HISTORY: F/U RIGHT RTSA. TECHNIQUE: 2D digital imaging was performed. Two images were obtained. Grashey and Y views were obtained. COMPARISON: CR XR SHOULDER RT COMPLETE 2+V from 05/30/2025 FINDINGS: BONES: There are stable post operative changes of a right reverse total shoulder arthroplasty present. No fracture or dislocation. JOINTS: The orthopedic hardware is in good position. No evidence of hardware loosening. There are degenerative changes at the acromioclavicular joint. SOFT TISSUE: Normal. IMPRESSION: Stable right reverse total shoulder arthroplasty. DATA REPOSITORY: RADIATION DOSE DELIVERED:
== END 2025-08-01 10:44 | disposition home or self-care (01) ==
LOC: DIORS 10:43
PROVIDERS: PCP Family Medicine; Referring Provider Family Medicine; Visit Provider Student in an Organized Health Care Education/Training Program
DX: M75.101 Unspecified rotator cuff tear or rupture of right shoulder, not specified as traumatic (principal); M75.21 Bicipital tendinitis, right shoulder; S44.91XA Injury of unspecified nerve at shoulder and upper arm level, right arm, initial encounter; X58.XXXA Exposure to other specified factors, initial encounter
CPT/HCPCS: 99214; 73030

== ENCOUNTER 2025-10-05 13:38 | Outpatient (CLI) | payer MEDICARE, SELFPAY ==
--- NOTE | 2025-10-05 12:45 | DI.RAD_ITS ---
Exam(s) XR SHOULDER RT COMPLETE 2+V EXAM: XR SHOULDER RT COMPLETE 2+V INDICATION: SHOULDER PAIN S/P FALL. COMPARISON: CR XR SHOULDER RT COMPLETE 2+V from 08/01/2025 TECHNIQUE: 2D digital imaging was performed. Two views. FINDINGS: Stable alignment the reverse shoulder prosthesis. There is no evidence of fracture or other suspicious bony lucency. DATA REPOSITORY: RADIATION DOSE DELIVERED:
== END 2025-10-05 13:39 | disposition home or self-care (01) ==
LOC: DIORS 13:38
PROVIDERS: PCP Family Medicine; Referring Provider Family Medicine; Visit Provider Physician Assistant
DX: M75.101 Unspecified rotator cuff tear or rupture of right shoulder, not specified as traumatic (principal); S44.91XD Injury of unspecified nerve at shoulder and upper arm level, right arm, subsequent encounter; W19.XXXD Unspecified fall, subsequent encounter
CPT/HCPCS: 99213; 73030